=== PATIENT | male | born 1990 | race African-American/Black ===

== ENCOUNTER 2016-03-15 03:35 | Emergency (ER) | payer SELFPAY ==
[~2016-03-15] VITALS: Ht 170.2 cm; Wt 59.1 kg
[~2016-03-15 03:35] MED LIST: BACTRIM,SEPT1 TABLET PO; LORTAB 5-325 M1 EACH PO; NOHOMEMEDS
[2016-03-15 03:37] VITALS: BP 140/95
[2016-03-15] MEDS ORDERED: NAPROXEN500 MG PO (05:04)
[2016-03-15] MEDS ORDERED: AUGMENTIN875 MG PO (05:04)
== END 2016-03-15 05:26 | disposition home or self-care (01) ==
LOC: EME 03:35 → EXP 03:35
PROC: 0HQFXZZ Repair Right Hand Skin, External Approach (ICD-10-PCS; principal; 2016-03-15)
PROC: 2W3EX1Z Immobilization of Right Hand using Splint (ICD-10-PCS; 2016-03-15)
DX: S61.411A Laceration without foreign body of right hand, initial encounter (principal); S62.304A Unspecified fracture of fourth metacarpal bone, right hand, initial encounter for closed fracture; Y04.2XXA Assault by strike against or bumped into by another person, initial encounter; F17.200 Nicotine dependence, unspecified, uncomplicated
CPT/HCPCS: 73130; 99281; 99284

== ENCOUNTER 2017-05-15 09:23 | Emergency (ER) | payer SELFPAY ==
[~2017-05-15] VITALS: Ht 170.2 cm; Wt 58.6 kg
[~2017-05-15 09:23] MED LIST changes: +AUGMENTIN875 MG PO; +NAPROXEN500 MG PO
[2017-05-15 09:27] VITALS: BP 147/93
[2017-05-15] MEDS ORDERED: KEFLEX500 MG PO (12:12)
[2017-05-15] MEDS ORDERED: PERCOCET 5/31 TABLET PO (12:12)
== END 2017-05-15 12:55 | disposition home or self-care (01) ==
LOC: EME 09:23
PROC: 2W3JX1Z Immobilization of Right Finger using Splint (ICD-10-PCS; principal; 2017-05-15)
PROC: 0HQFXZZ Repair Right Hand Skin, External Approach (ICD-10-PCS; principal; 2017-05-15)
PROC: 3E0234Z Introduction of Serum, Toxoid and Vaccine into Muscle, Percutaneous Approach (ICD-10-PCS; principal; 2017-05-15)
DX: S62.630B Displaced fracture of distal phalanx of right index finger, initial encounter for open fracture (principal); W18.30XA Fall on same level, unspecified, initial encounter; Z23 Encounter for immunization
CPT/HCPCS: 73140; 99281; 99285; S0020